=== PATIENT | female | born 2000 | race Caucasian/White ===

== ENCOUNTER 2024-03-09 08:02 | Emergency (ER) | payer OTHER ==
[~2024-03-09] VITALS: Ht 160 cm; Wt 86.2 kg
[2024-03-09 08:04] VITALS: BP 117/74; TEMP 97.7
[2024-03-09] MEDS: AZITHROMYCIN 250 MG TABLET PO ONE (08:12)
[2024-03-09 08:23] VITALS: O2SAT 99
== END 2024-03-09 08:24 | disposition home or self-care (01) ==
LOC: ER 08:08
DX: Z20.811 Contact with and (suspected) exposure to meningococcus (principal)

== ENCOUNTER 2024-10-20 21:49 | Emergency (ER) | payer OTHER ==
[~2024-10-20] VITALS: Ht 162.6 cm; Wt 77.1 kg
[2024-10-20 21:56] VITALS: BP 110/62; TEMP 98.2; O2SAT 95
[2024-10-20] MEDS ORDERED: CIPROFLOXACIN HCL 250 MG TABLET PO ONE (22:30)
[2024-10-21] MEDS ORDERED: AZITHROMYCIN 250 MG TABLET PO ONE
[2024-10-21] MEDS ORDERED: CIPROFLOXACIN HCL 500 MG TABLET ONE (00:29)
[2024-10-21] MEDS ORDERED: AZITHROMYCIN 250 MG TABLET ONE (00:30)
== END 2024-10-21 00:37 | disposition home or self-care (01) ==
LOC: ER 21:51
DX: Z13.89 Encounter for screening for other disorder (principal)